=== PATIENT | female | born 2000 | race Hispanic/Latino ===

== ENCOUNTER 2021-10-04 20:10 | Emergency (ER) | payer OTHER ==
[2021-10-04] MEDS ORDERED: Boostrix 0.5 ML (Tdap) VIAL ONE (21:23)
== END 2021-10-04 22:28 | disposition home or self-care (01) ==
LOC: ERS 20:10
DX: S02.2XXA Fracture of nasal bones, initial encounter for closed fracture (principal); W01.190A Fall on same level from slipping, tripping and stumbling with subsequent striking against furniture, initial encounter
CPT/HCPCS: 70450; 70486; 90471; 90715